=== PATIENT | female | born 2005 | race Caucasian/White ===

== ENCOUNTER 2024-01-08 10:26 | Outpatient (AMB) | payer BC, SELFPAY ==
--- NOTE | 2024-01-08 10:51 | MHC.PC.OV ---
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 Patient went to [facility] in [place], [place]. Patient's records are not in yet. Patient is concerned about a wart on her left foot. It Web Development Consultant Required: No Accompanied by: Mother Allergies amoxicillin Allergy (Severe, Verified 01/08/24 10:58) Rash Tobacco use date assessed: 01/08/24 Dental Screening Dental Screen Date: 01/08/24 Did you have a dental visit in the last 12 months?: Yes Did you have a dental problem in the last 6 months where you did not have access to dental care?: No Was dental information given to patient?: Patient has dentist HPI HPI Comments History of Present Illness Details 18 year old female with a past medical history of acne presenting to establish care and for physical exam. 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 Needs clearance to play sports at [employer]. No family history of heart disease, sudden cardiac . Denies chest pain, shortness of breath She has developed skin thickening/plantar wart on the left foot. 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 HEENT: Denies changes in vision and hearing. RESPIRATORY: Denies SOB and cough. CV: Denies palpitations and CP GI: Denies abdominal pain, nausea, vomiting and diarrhea. : Denies dysuria and urinary frequency. MSK: Denies new myalgia and joint pain. SKIN: see HPI NEUROLOGICAL: Denies headache PSYCHIATRIC: Denies recent changes in mood. PHYSICAL EXAM: GENERAL: Alert and oriented x 3. NAD EYES: EOMI. Anicteric. HENT: Moist mucous membranes. No scleral icterus. No cervical lymphadenopathy. LUNGS: Clear to auscultation bilaterally. CARDIOVASCULAR: Regular rate and rhythm. No murmur. No JVD. ABDOMEN: Soft, non-tender +bs EXTREMITIES: No edema. Non-tender. SKIN: Left plantar wart NEUROLOGIC: No focal neurological deficits. CN II-XII grossly intact PSYCHIATRIC: Cooperative. 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 1. Little interest or pleasure in doing things: not at all 2. Feeling down, depressed, or hopeless: not at all 3. Trouble falling or staying asleep, or sleeping too much: not at all 4. Feeling tired or having little energy: not at all 5. Poor appetite or overeating: not at all 6. Feeling bad about yourself - or that you are a failure or have let yourself or your family down: not at all 7. Trouble concentrating on things, such as reading the newspaper or watching television: not at all 8. Moving or speaking so slowly that other people could have noticed. Or the opposite - being so fidgety or restless that you have been moving around a lot more than usual: not at all 9. Thoughts that you would be better off or of hurting yourself in some way: not at all Total score: 0 Depression Screening Interpretation: Negative Depression Screening Done: Yes 87396 - PHQ-9 Billing: Yes Source: Developed by Drs. Dagoberto Goff, Arti De Guzman, Gregorio Whitaker and colleagues, with an educational alesia from [employer]. Thrive Questionnaire Date Thrive assessed: 01/08/24 I am a: Patient What is your living situation today?: I have a steady place to live Within the past 12 months, did the food you bought not last and you didn't have the money to get more?: Never true Within the past 12 months, did you worry whether your food would run out before you got money to buy more?: Never true Do you have trouble paying for medicines?: No Do you have trouble getting transportation to medical appointments?: No Do you have trouble paying your heating and electricity bill?: No Do you have trouble taking care of your child, family member or friend?: No Do you have trouble with day-to-day activities such as bathing, preparing meals, shopping, managing finances, etc.?: No Are you currently unemployed and looking for a job?: No Are you interested in more education?: No Please select the resources that you would like help with: None Currently or been in a relationship where the following occur: No concerns reported THRIVE Score: 0 AUDIT C Alcohol Use Questionnaire (AUDIT-C) 1. How often do you have a drink containing alcohol?: Never 3. How often do you have six or more drinks on one occasion?: Never Total Score: 0 BOWEN-7 AMB Questionnaire BOWEN-7 Date BOWEN - 7 assessed: 01/08/24 Feeling nervous, anxious, or on edge: 0 = Not at all Not being able to stop or control worryin = Not at all Worrying too much about different things: 0 = Not at all Trouble relaxin = Not at all Being so restless that it is hard to sit still: 0 = Not at all Becoming easily annoyed or irritable: 0 = Not at all Feeling afraid as if something awful might happen: 0 = Not at all Total BOWEN-7 score (0-4 normal; 5-9 mild; 10-14 moderate; 15-21 severe): 0 Source: Developed by Drs. Dagoberto Goff, Arti De Guzman, Gergorio Whitaker and colleagues, with an educational alesia from [employer]. BOWEN-7 Assessment Billing BOWEN-7 Assessment Tool: BOWEN-7 Assessment 48512 Physical exam (Primary Care) Vital Signs: Last Vital Signs Pulse 80 01/08/24 10:54 Resp 12 01/08/24 10:54 BP 104/60 01/08/24 10:54 Pulse Ox 99 01/08/24 10:54 Oxygen Delivery Method Room Air 01/08/24 10:54 BMI result Body Mass Index 23.0 Tobacco/Smoking Status: Tobacco use Status Tobacco use date assessed 01/08/24 01/08/24 11:03 Patient Tobacco Use Status Never used Tobacco 01/08/24 11:03 e-Cigarette/Vaping Use Never Used 01/08/24 11:03 PHQ-9: PHQ-9 Score PHQ-9: Total score 0 01/08/24 11:33 Depression Screening Interpretation: Negative Thrive Assessment: Date of Thrive Assessment Date Thrive assessed 01/08/24 01/08/24 11:05 Currently or been in a relationship where the following occur: No concerns reported Assessment and Plan Assessment & Plan (1) Routine sports physical exam: Code(s): Z02.5 - Encounter for examination for participation in sport Plan: Normal findings No family history HOCM Labs ordered (2) Physical exam: Code(s): Z00.00 - Encounter for general adult medical examination without abnormal findings Orders: Orders T Spot TB 01/08/24 Z01.84 - Encounter for antibody response examination Hepatitis BE Antibody 01/08/24 Z01.84 - Encounter for antibody response examination Coding Level of Care Code Est Pt Prev Care 18-39y(20550) Diagnoses Routine sports physical exam Z02.5 Physical exam Z00.00 Additional Codes BOWEN-7 Assessment Billing - BOWEN-7 Assessment Tool: BOWEN-7 Assessment 32722 ([id number])
[2024-01-08 10:54] VITALS: BP 104/60; PULSE 80; RESP 12; O2SAT 99; BMI 23.0
== END 2024-01-08 11:34 | disposition home or self-care (01) ==
PROVIDERS: PCP Internal Medicine; Visit Provider Internal Medicine
DX: R41.840 Attention and concentration deficit (principal)
CPT/HCPCS: 99204; 99395

== ENCOUNTER 2025-01-30 08:04 | Outpatient (AMB) | payer BC, SELFPAY ==
--- NOTE | 2025-01-30 08:08 | A.OFFPC_ITS ---
Vital Signs 01/30/25 08:14 Height 5 ft 9 in Weight 157 lb 8 oz BMI 23.3 BP 115/64 Blood Pressure Location Lt brachial Position Sitting Respiration 16 Pulse 60 Pulse Source Pulse Oximeter Temp 98.4 F Temp Source Oral Pulse Oximetry (%) 100 Oxygen Delivery Method Room Air Intake Visit Reasons: Annual PE Intake Note: patient here for CPE Childcare Administrator Required: No Is last menstrual period known: Yes Last menstrual period: 01/20/25 Post menopausal: No Patient : No Allergies amoxicillin Allergy (Severe, Verified 01/30/25 08:13) Rash Tobacco use date assessed: 01/30/25 Dental Screening Dental Screen Date: 01/30/25 Did you have a dental visit in the last 12 months?: Yes Did you have a dental problem in the last 6 months where you did not have access to dental care?: No Was dental information given to patient?: Patient has dentist HPI Annual PE HPI Details Patient is a 19-year-old female who presents today for a physical exam. Normally follows with Dr. Macias. Goes to nursing school. plays basketball. No fam hx of heart disease. 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 1. Little interest or pleasure in doing things: not at all 2. Feeling down, depressed, or hopeless: not at all 3. Trouble falling or staying asleep, or sleeping too much: not at all 4. Feeling tired or having little energy: not at all 5. Poor appetite or overeating: not at all 6. Feeling bad about yourself - or that you are a failure or have let yourself or your family down: not at all 7. Trouble concentrating on things, such as reading the newspaper or watching television: not at all 8. Moving or speaking so slowly that other people could have noticed. Or the opposite - being so fidgety or restless that you have been moving around a lot more than usual: not at all 9. Thoughts that you would be better off or of hurting yourself in some way: not at all Total score: 0 Depression Screening Interpretation: Negative Depression Screening Done: Yes 59044 - PHQ-9 Billing: Yes Source: Developed by Drs. Dagoberto Goff, Arti De Guzman, Gregorio Whitaker and colleagues, with an educational alesia from [employer]. Thrive Questionnaire Date Thrive assessed: 01/30/25 I am a: Patient What is your living situation today?: I have a steady place to live Within the past 12 months, did the food you bought not last and you didn't have the money to get more?: Never true Within the past 12 months, did you worry whether your food would run out before you got money to buy more?: Never true Do you have trouble paying for medicines?: No Do you have trouble getting transportation to medical appointments?: No Do you have trouble paying your heating and electricity bill?: No Do you have trouble taking care of your child, family member or friend?: No Do you have trouble with day-to-day activities such as bathing, preparing meals, shopping, managing finances, etc.?: No Are you currently unemployed and looking for a job?: No Are you interested in more education?: No Please select the resources that you would like help with: None Currently or been in a relationship where the following occur: No concerns reported THRIVE Score: 0 AUDIT C Alcohol Use Questionnaire (AUDIT-C) 1. How often do you have a drink containing alcohol?: Never 3. How often do you have six or more drinks on one occasion?: Never Total Score: 0 Score Reviewed/Action Taken: Yes BOWEN-7 AMB Questionnaire BOWEN-7 Date BOWEN - 7 assessed: 01/30/25 Feeling nervous, anxious, or on edge: 0 = Not at all Not being able to stop or control worryin = Not at all Worrying too much about different things: 0 = Not at all Trouble relaxin = Not at all Being so restless that it is hard to sit still: 0 = Not at all Becoming easily annoyed or irritable: 0 = Not at all Feeling afraid as if something awful might happen: 0 = Not at all Total BOWEN-7 score (0-4 normal; 5-9 mild; 10-14 moderate; 15-21 severe): 0 Source: Developed by Drs. Dagoberto Goff, Arti De Guzman, Gregorio Whitaker and colleagues, with an educational alesia from [employer]. BOWEN-7 Assessment Billing BOWEN-7 Assessment Tool: BOWEN-7 Assessment 15449 Physical exam (Primary Care) Tobacco/Smoking Status: Tobacco use Status Tobacco use date assessed 01/08/24 01/08/24 11:03 Patient Tobacco Use Status Never used Tobacco 01/08/24 11:03 e-Cigarette/Vaping Use Never Used 01/08/24 11:03 Depression Screening Interpretation: Negative Thrive Assessment: Date of Thrive Assessment Date Thrive assessed 01/08/24 01/08/24 11:05 Currently or been in a relationship where the following occur: No concerns reported Const Orientation/consciousness: patient oriented x3 HENMT Ears: hearing grossly normal bilaterally and TM's normal bilaterally General nose exam: No nasal polyps present Face and sinus: Yes sinuses nontender Mouth: Normal oral and palatal mucosa present Eyes Pupils: Equal, round and reactive pupils present EOM: EOMs intact bilaterally Neck Neck: Yes full ROM and Yes no lymphadenopathy Thyroid: Thyroid normal Chest Chest palpation & inspection: normal inspection of the chest Resp Auscultation: clear to auscultation bilaterally Cardio Rate: regular rate Rhythm: regular rhythm Heart sounds: S1 normal heart sound present and S2 normal heart sound present Peripheral pulses: Peripheral pulses 2+ throughout GI Other: Soft, nontender Auscultation: normal bowel sounds Rectal Exam - Female: deferred General: Yes no CVA tenderness Back/Spine/Pelvis Other: Nontender Back: no CVA tenderness Skin General skin exam: no rashes or lesions noted Neuro General: patient oriented x3, gait normal, CN's II-XI intact bilaterally and deep tendon reflexes 2+ bilaterally Cranial nerves: Yes Equal, round and reactive pupils present Motor exam (neuro): 5/5 motor strength present throughout Sensory Exam: double simultaneous stimulation for sensation normal Coordination: [id number] test normal and Romberg test negative Extrem General: Yes normal to inspection and Yes full ROM Psych Affect: normal affect Attitude: cooperative Thought process: Normal thought process present Thought content: Normal thought content present Insight: Good insight present (Psych) Judgement: Good judgement present (Psych) Coding Level of Care Code Est Pt Prev Care 18-39y(81774) Diagnoses Physical exam Z00.00 Additional Codes BOWEN-7 Assessment Billing - BOWEN-7 Assessment Tool: BOWEN-7 Assessment 23522 ([id number]) PHQ-9 - 88682 - PHQ-9 Billing: Yes ([id number]) Assessment & Plan Assessment & Plan (1) Physical exam: Code(s): Z00.00 - Encounter for general adult medical examination without abnormal findings Category: Medical Plan: hm reviewed labs ordered will follow up pending tests Orders: Orders Complete Blood Count Auto Diff Today Z00.00 - Encounter for general adult medical examination without abnormal findings, Z01.84 - Encounter for antibody response examination, Z02.5 - Encounter for examination for participation in sport Hepatitis B Surface Antibody Today Z00.00 - Encounter for general adult medical examination without abnormal findings, Z01.84 - Encounter for antibody response examination, Z02.5 - Encounter for examination for participation in sport Comprehensive [place]. Panel Fast Today Z00.00 - Encounter for general adult medical examination without abnormal findings, Z01.84 - Encounter for antibody response examination, Z02.5 - Encounter for examination for participation in sport Lipid Panel Today Z00.00 - Encounter for general adult medical examination without abnormal findings, Z01.84 - Encounter for antibody response examination, Z02.5 - Encounter for examination for participation in sport TSH reflex Free T4 Today Z00.00 - Encounter for general adult medical examination without abnormal findings, Z01.84 - Encounter for antibody response examination, Z02.5 - Encounter for examination for participation in sport
--- OUTSIDE RECORDS SUMMARY | 2025-01-30 08:10 | XMS_ITS | Clinical Summary ---
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 Name Role Phone Unavailable Primary Care Provider Unavailabl e Social History Tobacco Use Types Packs/Day Years Used Date Smoking Tobacco: Never Assessed Comments Unknown Sex and Gender Information Value Date Recorded Sex Assigned at Not on file Legal Sex Female 4:34 PM EDT Gender Identity Not on file Sexual Orientation Not on file Plan of Treatment Health Maintenance Due Date Last Done Comments Hepatitis C Virus Screening 2004 HIV Screening 02/17/2017 HPV Vaccines (1 - 3-dose series) 02/17/2019 DTaP/Tdap/Td Vaccines (1 - Tdap) 02/17/2023 Hepatitis B Vaccines (1 of 3 - 19+ 3-dose series) 02/17/2023 COVID-19 Vaccine ( - 2023-2 5 season) 2024 Pneumococcal Vaccine: Pediat bella (0-5 Years) and At-Risk Patients (6 to 49 Years) Aged Out No longer eligible b ased on patient's age to complete this topic
[2025-01-30 08:14] VITALS: BP 115/64; PULSE 60; RESP 16; TEMP 36.9; O2SAT 100; BMI 23.3
== END 2025-01-30 08:30 | disposition home or self-care (01) ==
LOC: HO.HMCFM 08:07
PROVIDERS: PCP Internal Medicine; Visit Provider Physician Assistant
DX: Z00.00 Encounter for general adult medical examination without abnormal findings (principal)

== ENCOUNTER → 2025-01-30 08:04 | Outpatient (BNVA) | payer BC, SELFPAY | PROVIDERS: PCP Internal Medicine; Visit Provider Physician Assistant | DX: Z00.00 Encounter for general adult medical examination without abnormal findings (principal) | CPT/HCPCS: 96127 ==

== ENCOUNTER 2025-02-03 15:11 | Outpatient (REF) | payer BC, SELFPAY ==
--- OUTSIDE RECORDS SUMMARY | 2025-02-03 15:46 | XMS_ITS | Clinical Summary ---
Author Organization [facility] Address [address] [place] [address] Care Team Providers Care Tow Operator Name Role Phone Unavailable Primary Care Provider [...]
--- OUTSIDE RECORDS SUMMARY | 2025-02-03 15:46 | XMS_ITS ---
Author Name [facility] Organization Unknown History of Medication Use Medication Directions Dispensed Refills Start Date End Date Stat adapalene 0.1 % topical cream PLEASE SEE ATTACHED FOR DETAILED DIRECTIONS PLEASE SEE ATTACHED FOR DETAILED DIRECTIONS completed Raeann (28) 3 mg-0.02 mg tablet TAKE 1 TABLET BY MOUTH EVERY DAY TAKE 1 TABLET BY MOUTH EVERY DAY completed spironolactone 100 mg tablet TAKE 1 TABLET WITH FOOD AND WATER TWICE DAILY. REMAIN WELL HYDRATED. TAKE 1 TABLET WITH FOOD AND WATER TWICE DAILY. REMAIN WELL HYDRATED. completed tretinoin 0.025 % topical gel APPLY DAILY OR EVERY OTHER DAY FOR ACNE ON FACE AND BACK APPLY DAILY OR EVERY OTHER DAY FOR ACNE ON FACE AND BACK completed Problems Problem Status Onset Date Problem Type Date of Resoluti on Source Visual disturbance active 2018-05-08 ProblemAct [facility] Headache active 2017-04-19 ProblemAct [facility] Acne active 2017-04-19 ProblemAct [facility] Anxiety active 2021-09-06 ProblemAct [facility] Eczema active ProblemAct [facility] Idiopathic scoliosis active ProblemAct [facility] Irregular periods active 2018-08-27 ProblemAct [facility] Pollen-food allergy active ProblemAct [facility] Hyperhidrosis active 2020-02-11 ProblemAct [facility] Depressive disorder active 2021-09-06 ProblemAct [facility] Encounters Encounter Type Encounter Reason Primary Diagnosis Location Date Ambulatory [facility] 09/14/2022 Ambulatory [facility] 08/17/2022 Ambulatory [facility] 03/07/2022 Ambulatory [facility] 11/02/2021 Ambulatory [facility] 10/04/2021 Ambulatory [facility] 09/06/2021 Ambulatory [facility] 06/22/2021 Care Team Organization Name Specialty Phone Email Start Date End Da te [facility] 2021 [facility] 202103/07/2022
[2025-02-03 18:15] LABS: MANUAL DIFF FLAG NO
[2025-02-03 18:19] LABS: Hematocrit 40.9 % (37.0-47.0); Hemoglobin 13.8 g/dl (12.0-16.0); Imm Gran Abs Auto 0.01 X10*3/uL (0.00-0.03); Imm Gran Pct Auto 0.2 % (0.0-0.4); Lymphocytes Absolute Auto 2.3 X10*3/uL (1.2-4.9); Mean Corpuscular HGB Conc 33.7 g/dl (31.0-35.0); Mean Corpuscular Hemoglobin 29.3 pg (27.0-33.0); Mean Corpuscular Volume 86.8 fL (80.0-98.0); NRBC Abs Auto 0.000 X10*3/uL (0.0-0.012); NRBC Pct Auto 0.0 /100WBC (0.0-0.2); Platelet Count 219 X10*3/uL (160-400); Red Blood Count 4.71 X10*6/uL (4.20-5.50); White Blood Count 5.9 X10*3/uL (4.8-10.8)
[2025-02-03 18:40] LABS: Alanine Aminotransferase 16 U/L (0-31); Albumin Level 4.4 g/dL (3.5-5.0); Alkaline Phosphatase 75 U/L (39-117); Anion Gap 12 (12-20); Aspartate Amino Transferase 20 U/L (5-31); Blood Urea Nitrogen 12 mg/dL (9-16); Calcium 9.3 mg/dL (8.4-10.2); Carbon Dioxide 26 mmol/L (22-29); Chloride 106 mmol/L (96-108); Cholesterol 184 mg/dL (<200); Estimated Glomerular Filt Rate > 60; HDL Cholesterol 74 mg/dL (>40); Potassium 4.1 mmol/L (3.3-5.1); Sodium 140 mmol/L (135-145); Total Protein 6.9 g/dL (6.5-8.0); Triglycerides 135 mg/dL (<150)
[2025-02-04 08:25] LABS: HBS Num1 > 1000.00 mIU/mL (0-7.99); ~Hepatitis B Surface Antibody REACTIVE (Nonreactive)
== END 2025-02-03 15:12 | disposition home or self-care (01) ==
LOC: HO.WFDLDS 15:11
PROVIDERS: Visit Provider Physician Assistant
DX: Z00.00 Encounter for general adult medical examination without abnormal findings (principal); Z11.59 Encounter for screening for other viral diseases; Z13.6 Encounter for screening for cardiovascular disorders; Z13.0 Encounter for screening for diseases of the blood and blood-forming organs and certain disorders involving the immune mechanism
CPT/HCPCS: 36415; 80053; 80061; 84443; 85025; 86706